=== PATIENT | male | born 1955 | race Caucasian/White ===

== ENCOUNTER 2022-08-11 00:05 | Emergency (ER) | payer BC ==
[~2022-08-11] VITALS: Ht 170.2 cm; Wt 61.8 kg
[2022-08-11] MEDS ORDERED: MORPHINE SULFATE 4 MG/ML CPJ (NOT FOR IM USE) IV STA (00:57)
[2022-08-11] MEDS ORDERED: ONDANSETRON HCL 4MG/2ML INJ IV STA (00:57)
[2022-08-11 01:18] LABS: CHLORIDE 107 mEq/L (98-107)
[2022-08-11 01:20] LABS: BASOPHILS % 0.2 % (0.0-2.0); EOSINOPHILS % 1.3 % (0.0-5.0); HEMATOCRIT. 46.7 % (42.0-52.0); HEMOGLOBIN. 16.3 g/dL (14.0-18.0); LYMPHOCYTES % 26.4 % (20.0-50.0); MEAN CORPUSCULAR HEMOGLOBIN 31.5 pg (28.0-32.0); MEAN CORPUSCULAR VOLUME 90.5 fL (80.0-94.0); MONOCYTES % 8.3 % (2.0-8.0); NEUTROPHILS % 63.8 % (40.0-76.0); PLATELET 192 x1000/uL (130-400); RED BLOOD CELL COUNT 5.16 mill/uL (4.7-6.1); RED CELL DISTRIBUTION WIDTH 12.8 % (11.6-14.6)
[2022-08-11] MEDS ORDERED: IOHEXOL-350 100 ML BOTTLE ONE (02:21)
[2022-08-11] MEDS ORDERED: IBUP-2029 MT (05:40)
[2022-08-11] MEDS ORDERED: HYDR-4001 MT (05:40)
[2022-08-11 05:55] VITALS: BP 116/55
== END 2022-08-11 06:17 | disposition home or self-care (01) ==
LOC: ER 00:05
DX: R09.1 Pleurisy (principal); E78.00 Pure hypercholesterolemia, unspecified; E11.9 Type 2 diabetes mellitus without complications
CPT/HCPCS: 36415; 71045; 71275; 80053; 84484; 85025; 85379; 93005; 96374; 96375; 99285; J2270; J2405; Q9967